=== PATIENT | male | born 1975 | race Caucasian/White ===

== ENCOUNTER 2019-09-01 23:51 | Emergency (ER) | payer OTHER ==
[~2019-09-01] VITALS: Ht 177.8 cm; Wt 70.3 kg
[2019-09-02] VITALS: BP 109/70
--- NOTE | 2019-09-02 | NUR ---
ED Nurse Note: Pt walked into ED for c/o dysuria, penile discomfort and discharge x 2 days. Pt is concerned he has an STD. Pt is aaox4, no cardiac or respiratory distress noted.
[2019-09-02] MEDS ORDERED: Azithromycin 250mg tab ORAL ONE (00:15)
[2019-09-02] MEDS ORDERED: Lidocaine 1% MPF 10mg/ml 5ml INJ ONE (00:15)
--- NOTE | 2019-09-02 00:18 | Emergency Room Report ---
History of Present Illness General Chief Complaint: Male Urogenital Problems Source: Patient Present Illness HPI This a 44-year-old male with no past medical history. He does have a history of previous STDs. He presents with chief complaint of penile discharge. Onset for last couple days. Discharge is yellowish and greenish in nature. History of gonorrhea in the past. He is sexually active with unprotected sex. Does have dysuria. No testicular swelling. Denies any other complaint. Worse with urination. Allergies: Coded Allergies: No Known Allergies (Unverified , 09/02/19) COVID-19 Screening Contact w/high risk pt: No Recent Travel to affected area: No Experienced COVID-19 symptoms?: No COVID-19 Testing performed [employer] MEAT: No Patient History Past Medical History: see triage record, old chart reviewed Past Surgical History: none Pertinent Family History: none Social History: Denies: smoking Immunizations: other Reviewed Nursing Documentation: PMH: Agreed; PSxH: Agreed Nursing Documentation-PMH Hx Cardiac Problems: No Hx Hypertension: No Hx Pacemaker: No Hx Asthma: No Hx COPD: No Hx Diabetes: No Hx Cancer: No Hx Gastrointestinal Problems: Yes - gastritis Hx Dialysis: No History Of Psychiatric Problem: No Hx Neurological Problems: No Hx Cerebrovascular Accident: No Hx Seizures: No Review of Systems Eye: Denies: eye pain, blurred vision ENT: Denies: ear pain, nose congestion, throat swelling Respiratory: Denies: cough, shortness of breath Cardiovascular: Denies: chest pain, palpitations Gastrointestinal: Denies: abdominal pain, diarrhea, nausea, vomiting Genitourinary: Reports: discharge Musculoskeletal: Denies: back pain, joint pain Skin: Denies: rash Neurological: Denies: headache, numbness Endocrine: Denies: increased thirst, increased urine Hematologic/Lymphatic: Denies: easy bruising All Other Systems: negative except mentioned in HPI Physical Exam Vital Signs Date Time Temp Pulse Resp B/P (MAP) Pulse Ox O2 Delivery O2 Flow Rate FiO2 09/01/19 23:57 97.9 92 20 109/70 (83) 96 Room Air Vitals normal Sp02 EP Interpretation: reviewed, normal General Appearance: well appearing, no apparent distress, alert Head: normocephalic, atraumatic Eyes: bilateral eye PERRL, bilateral eye EOMI ENT: hearing grossly normal, normal pharynx Neck: full range of motion, supple, no meningismus Respiratory: chest non-tender, lungs clear, normal breath sounds Cardiovascular #1: regular rate, rhythm, no murmur Gastrointestinal: normal bowel sounds, non tender, no mass, no organomegaly, no bruit, non-distended Genitourinary: other - Whitish/yellowish discharge Musculoskeletal: back normal, normal range of motion, gait/station normal Psychiatric: mood/affect normal Medical Decision Making Diagnostic Impression: Primary Impression: Urethritis ER Course Patient with acute urethritis. Most likely gonorrhea. Rocephin and azithromycin given here. Recommend outpatient testing for HIV, hepatitis, syphilis and other STDs. No evidence of systemic spread. No evidence of any orchitis or torsion. Last Vital Signs Date Time Temp Pulse Resp B/P (MAP) Pulse Ox O2 Delivery O2 Flow Rate FiO2 09/01/19 23:57 97.9 92 20 109/70 (83) 96 Room Air Status: improved Disposition: HOME, SELF-CARE Condition: Stable Scripts No Active Prescriptions or Reported Meds Patient Instructions: Urethritis, Adult Additional Instructions: Wear condoms with sexual activity. Follow-up with your doctor in 7 days. Recommend outpatient testing for HIV, hepatitis, syphilis and other STDs. Have your partners treated also. Power Siddiqui MD September 02, 2019 00:18
[2019-09-02 00:30] VITALS: BP 109/70
--- NOTE | 2019-09-02 00:30 | NUR ---
ER DISCHARGE NOTE: Patient is cleared to be discharged per ERMD, pt is aox4, on room air, with stable vital signs. pt was given dc instructions, pt was able to verbalize understanding, pt id band removed. pt is able to ambulate with steady gait. pt took all belongings.
== END 2019-09-02 00:30 | disposition home or self-care (01) ==
LOC: EMR 09-02 00:15
DX: N34.2 Other urethritis (principal)
CPT/HCPCS: 96372; J0696; Q0144; Z7502; 99283